=== PATIENT | male | born 1990 | race African-American/Black ===

== ENCOUNTER 2021-05-19 17:28 | Emergency (ER) | payer OTHER ==
[2021-05-19 17:36] VITALS: BP 117/73; PULSE 78; BMI 26.2
[2021-05-19] MEDS ORDERED: KETOROLAC TROMETHAMINE 60 MG/2 ML VIAL IM ONE (19:41)
[2021-05-19] MEDS ORDERED: KETOROLAC TROMETHAMINE 60 MG/2 ML VIAL ONE ×2 (20:05→20:06)
== END 2021-05-19 20:34 | disposition home or self-care (01) ==
LOC: JERFT 17:28
PROC: 3E0233Z Introduction of Anti-inflammatory into Muscle, Percutaneous Approach (ICD-10-PCS; principal; 2021-05-19)
DX: S43.005A Unspecified dislocation of left shoulder joint, initial encounter (principal); M25.512 Pain in left shoulder; Y93.61 Activity, american tackle football
CPT/HCPCS: 73030-TC-LT-FY; 99284-25